=== PATIENT | female | born 1985 | race Two or more races ===

== ENCOUNTER 2017-10-20 01:34 | Emergency (ER) | payer MEDICAID, OTHER ==
[~2017-10-20] VITALS: Ht 162.6 cm; Wt 65.2 kg
[2017-10-20 01:40] VITALS: BP 122/84
[2017-10-20 02:42] LABS: HCG UR SG 1.013 (1.003-1.030); MICROSCOPIC AUTO
[2017-10-20 02:47] LABS: CULTURE INDICATED? YES
[2017-10-20] MEDS ORDERED: CEFTRIAXONE 250 MG IM ONE (03:00)
[2017-10-20] MEDS ORDERED: AZITHROMYCIN 500 MG TABLET PO ONE (03:00)
[2017-10-20] MEDS ORDERED: CEFTRIAXONE 250 MG ONE (03:14)
[2017-10-20] MEDS ORDERED: AZITHROMYCIN 500 MG TABLET ONE (03:14)
[2017-10-20 03:32] LABS: CLUE CELLS NONE SEEN (NONE SEEN); WET PREP WBCS MODERATE (FEW)
== END 2017-10-20 04:24 | disposition home or self-care (01) ==
LOC: ED 04:18
DX: N30.00 Acute cystitis without hematuria (principal); A56.8 Sexually transmitted chlamydial infection of other sites; A54.9 Gonococcal infection, unspecified
CPT/HCPCS: 81001; 81025; 87086; 87210; 87491; 87591; 87808; 96372; 99284; J0696

== ENCOUNTER 2017-10-27 16:16 | Emergency (ER) | payer MEDICAID ==
[~2017-10-27] VITALS: Ht 162.6 cm; Wt 64.8 kg
[2017-10-27 17:21] LABS: BASOPHILS % (AUTO) 1 % (0-1); EOSINOPHILS # (AUTO) 0.12 x10^3/uL (0-0.4); EOSINOPHILS % (AUTO) 1 % (1-7); LYMPHOCYTES # (AUTO) 2.51 x10^3/uL (1-3.4); LYMPHOCYTES % (AUTO) 26 % (22-44); MD NO; MEAN CORPUSCULAR HEMOGLOBIN 29.3 pg (27.0-34.8); MEAN CORPUSCULAR HGB CONC 33.7 g/dL (32.4-35.8); MEAN CORPUSCULAR VOLUME 87.1 fL (80-100); MEAN PLATELET VOLUME 10.1 fL (7.4-10.4); MONOCYTES # (AUTO) 0.57 x10^3/uL (0.2-0.8); MONOCYTES % (AUTO) 6 % (2-9); NEUTROPHILS # (AUTO) 6.47 x10^3/uL (1.8-6.8); NEUTROPHILS % (AUTO) 66 % (42-75); PLATELET COUNT 287 x10^3/uL (130-400); RED BLOOD COUNT 5.13 x10^6/uL (3.82-5.3); RED CELL DISTRIBUTION WIDTH 12.6 % (9.6-15.2)
[2017-10-27 17:34] LABS: ALBUMIN 4.1 g/dL (3.4-5.0); ANION GAP 9 mmol/L (5-15); CALCIUM 9.2 mg/dL (8.5-10.1); CHLORIDE 109 mmol/L (98-107); CREATININE 1.15 mg/dL (0.55-1.02)
[2017-10-27 18:30] LABS: CULTURE INDICATED? YES; MICROSCOPIC INDICATED
[2017-10-27 18:48] VITALS: BP 126/82
== END 2017-10-27 19:37 | disposition home or self-care (01) ==
LOC: ED 18:15
DX: N30.00 Acute cystitis without hematuria (principal)
CPT/HCPCS: 36415; 80048; 81001; 82040; 84703; 85025; 87086; 99284

== ENCOUNTER 2018-01-07 19:41 | Emergency (ER) | payer MEDICAID ==
[~2018-01-07] VITALS: Ht 162.6 cm; Wt 62.0 kg
[2018-01-07 20:30] LABS: BASOPHILS # (AUTO) 0.08 x10^3/uL (0-0.1); BASOPHILS % (AUTO) 1 % (0-1); EOSINOPHILS # (AUTO) 0.09 x10^3/uL (0-0.4); EOSINOPHILS % (AUTO) 1 % (1-7); LYMPHOCYTES # (AUTO) 1.96 x10^3/uL (1-3.4); LYMPHOCYTES % (AUTO) 14 % (22-44); MD NO; MEAN CORPUSCULAR HEMOGLOBIN 29.7 pg (27.0-34.8); MEAN CORPUSCULAR VOLUME 87.3 fL (80-100); MEAN PLATELET VOLUME 10.3 fL (7.4-10.4); MONOCYTES # (AUTO) 0.58 x10^3/uL (0.2-0.8); MONOCYTES % (AUTO) 4 % (2-9); NEUTROPHILS % (AUTO) 80 % (42-75); PLATELET COUNT 249 x10^3/uL (130-400); RED BLOOD COUNT 5.15 x10^6/uL (3.82-5.3); RED CELL DISTRIBUTION WIDTH 13.3 % (9.6-15.2)
[2018-01-07 20:38] LABS: ALANINE AMINOTRANSFERASE 27 U/L (12-78); ALBUMIN 4.1 g/dL (3.4-5.0); ANION GAP 12 mmol/L (5-15); CALCIUM 9.4 mg/dL (8.5-10.1); CHLORIDE 107 mmol/L (98-107); CREATININE 1.13 mg/dL (0.55-1.02)
[2018-01-07 20:39] VITALS: BP 122/84
[2018-01-07 20:43] LABS: ALKALINE PHOSPHATASE 74 U/L (45-117); BILIRUBIN,TOTAL 0.4 mg/dL (0.2-1.0); TOTAL PROTEIN 8.5 g/dL (6.4-8.2)
[2018-01-07] MEDS ORDERED: OMNIPAQUE 350 MG/ML, 100ML BOTTLE ONE (21:10)
[2018-01-07 21:12] LABS: PROTHROMBIN TIME 10.6 Seconds (9.6-11.5)
[2018-01-07 21:47] LABS: MICROSCOPIC AUTO
[2018-01-07 21:48] LABS: CULTURE INDICATED? YES
== END 2018-01-07 22:25 | disposition home or self-care (01) ==
LOC: ED 20:57
DX: R60.9 Edema, unspecified (principal); N30.00 Acute cystitis without hematuria; R91.1 Solitary pulmonary nodule
CPT/HCPCS: 36415; 71046; 71260; 80053; 81001; 84703; 85025; 85610; 85730; 87086; 93005; 99284; Q9967

== ENCOUNTER 2018-08-16 13:27 | Emergency (ER) | payer MEDICAID ==
[~2018-08-16] VITALS: Ht 160 cm; Wt 63.7 kg
--- NOTE | 2018-08-16 13:52 | NUR ---
PATIENT PRESENTS TO ED TODAY FOR BRIGHT RED BLOOD IN STOOL TODAY AT 1300. AWAITING MD ORDERS, CALL LIGHT WITHIN REACH,
[2018-08-16] MEDS ORDERED: SERT100T PO (14:02)
[2018-08-16] MEDS ORDERED: PREN1TAB60 PO (14:02)
[2018-08-16 14:22] LABS: BASOPHILS # (AUTO) 0.04 x10^3/uL (0-0.1); BASOPHILS % (AUTO) 1 % (0-1); EOSINOPHILS # (AUTO) 0.12 x10^3/uL (0-0.4); EOSINOPHILS % (AUTO) 2 % (1-7); LYMPHOCYTES # (AUTO) 1.87 x10^3/uL (1-3.4); LYMPHOCYTES % (AUTO) 24 % (22-44); MD NO; MEAN CORPUSCULAR HEMOGLOBIN 29.5 pg (27.0-34.8); MEAN CORPUSCULAR HGB CONC 33.1 g/dL (32.4-35.8); MEAN CORPUSCULAR VOLUME 89.3 fL (80-100); MEAN PLATELET VOLUME 10.3 fL (7.4-10.4); MONOCYTES % (AUTO) 7 % (2-9); NEUTROPHILS # (AUTO) 5.16 x10^3/uL (1.8-6.8); NEUTROPHILS % (AUTO) 67 % (42-75); PLATELET COUNT 256 x10^3/uL (130-400); RED BLOOD COUNT 5.15 x10^6/uL (3.82-5.3); RED CELL DISTRIBUTION WIDTH 12.6 % (9.6-15.2)
[2018-08-16] MEDS ORDERED: SODIUM CHLORIDE FLUSH 10ML SYR IVF ONE (14:30)
[2018-08-16 14:31] LABS: ANION GAP 9 mmol/L (5-15); CHLORIDE 104 mmol/L (98-107); CREATININE 1.09 mg/dL (0.55-1.02)
--- NOTE | 2018-08-16 14:47 | NUR ---
TASK RN: HCG ADDED. LAB CALLED TO MAKE AWARE OF ORDER.
[2018-08-16] MEDS ORDERED: METF500T17 PO (14:59)
[2018-08-16] MEDS ORDERED: POTASSIUM CHLORIDE 20 MEQ TAB.ER.PRT PO ONE (15:00)
--- NOTE | 2018-08-16 15:29 | NUR ---
PATIENT IN CT.
[2018-08-16] MEDS ORDERED: OMNIPAQUE 350 MG/ML, 100ML BOTTLE ONE (15:39)
--- NOTE | 2018-08-16 15:51 | NUR ---
VS UPDATED IN CHART, PATIENT SITTING IN [facility], A+[id number], AWAITING CT RESULTS
--- NOTE | 2018-08-16 16:04 | NUR ---
RESULTS BACK, CHART UP FOR RECHECK.
[2018-08-16] MEDS ORDERED: POTASSIUM CHLORIDE 20 MEQ TAB.ER.PRT ONE (16:06)
[2018-08-16 17:01] VITALS: BP 120/73
--- NOTE | 2018-08-16 17:01 | NUR ---
Patient/Caregiver given discharge instructions and they have confirmed that they understand the instructions. Patient ambulatory with steady gait.
== END 2018-08-16 17:03 | disposition home or self-care (01) ==
LOC: ED 14:38
DX: K92.0 Hematemesis (principal); E11.65 Type 2 diabetes mellitus with hyperglycemia; A09 Infectious gastroenteritis and colitis, unspecified; E87.6 Hypokalemia; Z87.891 Personal history of nicotine dependence
CPT/HCPCS: 36415; 74177; 80048; 82040; 84703; 85025; 99284; Q9967

== ENCOUNTER 2019-08-01 18:29 | Emergency (ER) | payer MEDICAID ==
[~2019-08-01] VITALS: Ht 162.6 cm; Wt 62.9 kg
[~2019-08-01 18:29] MED LIST: METF500T17 PO; PREN1TAB60 PO; SERT100T PO
[2019-08-01 18:46] VITALS: BP 125/68
== END 2019-08-01 21:02 | disposition home or self-care (01) ==
LOC: ED 20:17
DX: F41.1 Generalized anxiety disorder (principal); R07.9 Chest pain, unspecified; R06.02 Shortness of breath
CPT/HCPCS: 99283